=== PATIENT | male | born 1990 | race Hispanic/Latino ===

== ENCOUNTER 2022-03-26 02:21 | Emergency (ER) | payer SELFPAY ==
[~2022-03-26] VITALS: Ht 170.2 cm; Wt 82.0 kg
[2022-03-26 04:30] VITALS: BP 106/66
== END 2022-03-26 04:30 | disposition home or self-care (01) | DRG 605 ==
LOC: ED 02:21
PROC: 0HQ0XZZ Repair Scalp Skin, External Approach (ICD-10-PCS; principal; 2022-03-26)
DX: S01.01XA Laceration without foreign body of scalp, initial encounter (principal); W20.8XXA Other cause of strike by thrown, projected or falling object, initial encounter; Y92.009 Unspecified place in unspecified non-institutional (private) residence as the place of occurrence of the external cause

== ENCOUNTER 2022-03-31 08:56 | Emergency (ER) | payer SELFPAY ==
[~2022-03-31] VITALS: Ht 170.2 cm; Wt 75.0 kg
[2022-03-31 10:32] VITALS: BP 128/75
== END 2022-03-31 10:48 | disposition home or self-care (01) | DRG 950 ==
LOC: ED 08:56
DX: S01.01XD Laceration without foreign body of scalp, subsequent encounter (principal); X58.XXXD Exposure to other specified factors, subsequent encounter